=== PATIENT | male | born 1935 | race Hispanic/Latino ===

== ENCOUNTER 2018-02-23 01:38 | Emergency (ER) | payer MEDICARE, OTHER ==
[2018-02-23 02:09] LABS: Hematocrit 41.3 % (35.5-45.6); Mean Corpuscular HGB Conc 34 % (32-34); Mean Corpuscular Hemoglobin 34 pg (28-32); Mean Corpuscular Volume 99 fl (84-94); Platelet Count 169 K/mm3 (140-440); Red Blood Count 4.15 M/mm3 (3.65-5.03); Red Cell Distribution Width 13.5 % (13.2-15.2)
[2018-02-23 02:37] LABS: BUN/Creatinine Ratio 30; Blood Urea Nitrogen 12 mg/dL (9-20); Calcium 8.7 mg/dL (8.4-10.2); Hemolysis Index 9
--- NOTE | 2018-02-23 02:51 | Cat Scan Report ---
FINAL REPORT EXAM: CT CERVICAL SPINE WO CON HISTORY: fall humerus fracture TECHNIQUE: Routine axial imaging was obtained of the cervical spine without IV contrast with sagittal and coronal reconstructions. FINDINGS: There is a levoscoliosis with reversal of the usual cervical lordosis. There is severe narrowing of the C5-C6 disc with endplate spurring. There is partial fusion at the C6-C7 level with endplate spurring. There is mild canal stenosis at both levels. The upper cervical discs are normal in height. There is no evidence of fracture. There is varying degrees of facet arthropathy changes bilaterally at most levels. The prevertebral soft tissues appear normal. There is moderate arthritic changes of the C1-C2 articulation. 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 IMPRESSION: Levoscoliosis with bursal of the usual cervical lordosis. Severe disc degeneration with endplate spurring at the C5-C6 and C6 levels with mild canal stenosis at both levels. Extensive facet arthropathy changes bilaterally at multiple levels. No evidence of fracture. 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 Outpatient thyroid sonography is recommended for better evaluation.
--- NOTE | 2018-02-23 03:12 | XRay Report ---
FINAL REPORT EXAM: XR HUMERUS BILAT 2+V HISTORY: fall huymerus fracture TECHNIQUE: Two AP views of the left humerus were submitted. There are no previous studies available for comparison. FINDINGS: There is osteoporosis. There is a chronic fracture deformity through the left humeral neck. An acute fracture line is not definitely seen. The elbow joint is not show any acute changes. The soft tissues are unremarkable. IMPRESSION: Osteoporosis. Chronic fracture deformity of the left humeral neck. No definite acute fracture identified.
[2018-02-23 03:42] LABS: Bilirubin,Urine NEG (Negative); Blood,Urine NEG (Negative); Color,Urine Yellow (Yellow); Mucus,Urine FEW /HPF; Protein,Urine <15 mg/dL mg/dL (Negative); Urobilinogen,Urine < 2.0 mg/dL (<2.0)
--- NOTE | 2018-02-23 04:26 | Emergency Department Report ---
ED General Adult HPI - General Chief complaint: Extremity Injury, Upper Stated complaint: SHOULDER PAIN Time Seen by Provider: 02/23/18 02:48 Source: patient, family, EMS (ems notes not available at time of chart dictation), RN notes reviewed Mode of arrival: Stretcher Limitations: Physical Limitation - History of Present Illness Initial comments: This is an 82-year-old male, unknown to this provider, history of aneurysm, left -sided hemiparesis, chronic known left-sided proximal humerus fracture, sent to the ER from a local assisted for evaluation of left anterior chest wall ecchymosis, uncertain how it got there, and possible acute fracture of left humerus. The patient is nonverbal and cannot describe exacerbating or relieving factors or give any additional history. He is accompanied by his son , who indicates that the patient appears to be at baseline. Patient's son denies fevers, chills, new lethargy, irritability, or change in mental status. Patient has an anterior lateral superior left-sided chest wall ecchymosis, and he does not know how it got there. The assisted does not know how it got there. The assisted with the patient came from obtained inpatient x-rays which showed a proximal left-sided humerus fracture, and he was sent to the ER for further evaluation and management. -: unknown Location: chest, left Quality: other (per hpi) Consistency: other (per hpi) Improves with: other (per hpi) Worsens with: other (per hpi) Associated Symptoms: other (per hpi) - Related Data Home Medications Medication Instructions Recorded Confirmed Last Taken Captopril [Capoten] 50 mg PO TID 12/17/13 12/17/13 Unknown Cimetidine 400 mg PO QHS 12/17/13 12/17/13 Unknown Donepezil [Aricept] 10 mg PO QHS 12/17/13 12/17/13 Unknown Finasteride 1 mg PO DAILY 12/17/13 12/17/13 Unknown Memantine HCl [Namenda Xr] 28 mg PO DAILY 12/17/13 12/17/13 Unknown Metoprolol [Lopressor TAB] 100 mg PO BID 12/17/13 12/17/13 Unknown Tamsulosin [Flomax] 0.4 mg PO DAILY 12/17/13 12/17/13 Unknown Previous Rx's Medication Instructions Recorded Last Taken Type Aspirin [Aspirin TAB] 325 mg PO QDAY #15 tablet 12/23/13 Unknown Rx Enoxaparin [Lovenox] 40 mg SUB-Q QDAY #15 syringe 12/23/13 Unknown Rx Phenytoin (25 mg/ml) [Dilantin] 300 mg PO DAILY #30 oral.liqd 12/23/13 Unknown Rx Simvastatin [Zocor TAB] 20 mg PO QHS #30 tablet 12/23/13 Unknown Rx Allergies Allergy/AdvReac Type Severity Reaction Status Date / Time No Known Allergies Allergy Verified 12/18/13 02:04 ED Review of Systems ROS: Stated complaint: SHOULDER PAIN Other details as noted in HPI Comment: Unobtainable due to pts medical conditions ED Past Medical Hx - Past Medical History Previous Medical History?: Yes Hx Hypertension: Yes Hx CVA: Yes (aphasia) Hx Diabetes: No Hx Seizures: Yes (epilepsy) Hx COPD: Yes Hx Dementia: Yes - Surgical History Past Surgical History?: Yes Hx Appendectomy: Yes - Social History Smoking Status: Never Smoker - Medications Home Medications: Home Medications Medication Instructions Recorded Confirmed Last Taken Type Captopril [Capoten] 50 mg PO TID 12/17/13 12/17/13 Unknown History Cimetidine 400 mg PO QHS 12/17/13 12/17/13 Unknown History Donepezil [Aricept] 10 mg PO QHS 12/17/13 12/17/13 Unknown History Finasteride 1 mg PO DAILY 12/17/13 12/17/13 Unknown History Memantine HCl [Namenda Xr] 28 mg PO DAILY 12/17/13 12/17/13 Unknown History Metoprolol [Lopressor TAB] 100 mg PO BID 12/17/13 12/17/13 Unknown History Tamsulosin [Flomax] 0.4 mg PO DAILY 12/17/13 12/17/13 Unknown History Aspirin [Aspirin TAB] 325 mg PO QDAY #15 tablet 12/23/13 Unknown Rx Enoxaparin [Lovenox] 40 mg SUB-Q QDAY #15 syringe 12/23/13 Unknown Rx Phenytoin (25 mg/ml) [Dilantin] 300 mg PO DAILY #30 oral.liqd 12/23/13 Unknown Rx Simvastatin [Zocor TAB] 20 mg PO QHS #30 tablet 12/23/13 Unknown Rx ED Physical Exam - General Limitations: Physical Limitation General appearance: alert, in no apparent distress, other (patient is nonverbal. ) - Head Head exam: Present: atraumatic, normocephalic - Eye Eye exam: Present: normal appearance - ENT ENT exam: Present: mucous membranes dry - Neck Neck exam: Present: normal inspection, full ROM. Absent: tenderness, meningismus - Respiratory Respiratory exam: Present: normal lung sounds bilaterally, chest wall tenderness (left lateral anterior chest wall ecchymosis and hematoma. No crepitus. Anterior chest wall compartments soft.). Absent: respiratory distress - Cardiovascular Cardiovascular Exam: Present: regular rate, normal rhythm, normal heart sounds. Absent: bradycardia, tachycardia, irregular rhythm, systolic murmur, diastolic murmur, rubs, gallop - GI/Abdominal GI/Abdominal exam: Present: soft, normal bowel sounds. Absent: distended, tenderness, guarding, rebound, rigid, pulsatile mass - Rectal Rectal exam: Present: deferred - Extremities Exam Extremities exam: Present: normal inspection, normal capillary refill, other (2 + pulses noted in the bilateral upper, lower extremities. Compartments soft. No long bony tenderness. The pelvis is stable.). Absent: calf tenderness - Back Exam Back exam: Present: normal inspection. Absent: full ROM (chronic decreased range of motion in the left arm, appears unchanged from baseline as per son.) - Neurological Exam Neurological exam: Present: alert, motor sensory deficit (left-sided weakness.) , other (patient moving right upper, right lower extremity. Unable to assess cranial nerves, sensation, orientation secondary to patient's lack of ability to cooperate and participate.) - Psychiatric Psychiatric exam: Present: flat affect, other (patient is nonverbal) - Skin Skin exam: Present: warm, ecchymosis ED Course - Reevaluation(s) Reevaluation #1: 02/23/18 05:53 CT scan of the brain shows no acute disease. Chronic findings noted. Patient will be discharged. ED Medical Decision Making - Lab Data Result diagrams: 02/23/18 02:03 02/23/18 02:03 Labs 02/23/18 02/23/18 02/23/18 02:03 02:03 02:50 WBC 11.9 H RBC 4.15 Hgb 14.0 Hct 41.3 MCV 99 H MCH 34 H MCHC 34 RDW 13.5 Plt Count 169 Sodium 137 Potassium 3.8 Chloride 97.0 L Carbon Dioxide 31 H Anion Gap 13 BUN 12 Creatinine 0.4 L Estimated GFR > 60 BUN/Creatinine Ratio 30 Glucose 110 H Calcium 8.7 Total Creatine Kinase 126 Urine Color Yellow Urine Turbidity Clear Urine pH 5.0 Ur Specific [place] 1.021 Urine Protein <15 mg/dl Urine Glucose (UA) Neg Urine Ketones Neg Urine Blood Neg Urine Nitrite Neg Urine Bilirubin Neg Urine Urobilinogen < 2.0 Ur Leukocyte Esterase Neg Urine WBC (Auto) 1.0 Urine RBC (Auto) 1.0 U Epithel Cells (Auto) 1.0 Urine Mucus Few - Radiology Data Radiology results: report reviewed, image reviewed interpreted by me: X-ray the chest is negative for acute disease. Noncontrast CT scan of the cervical spine shows DJD. No acute disease. X-ray of the left humerus demonstrates a chronic fracture deformity of the left humeral neck. No definite acute fracture is identified. - Medical Decision Making Differential diagnosis, including but not limited to: Intracranial injury, cervical spine injury, traumatic chest wall ecchymosis, etiology unknown, chronic left proximal humerus fracture Assessment and plan: 82-year-old male who presents to the ER with left anterior lateral chest wall ecchymosis, of unknown etiology. He does not have an acute fracture noted on x-ray in his left proximal humerus. He is neurologically at his baseline as per family. Noncontrast CT scan interpretation the brain is pending. The left anterior chest wall ecchymosis coming managed expectantly. Critical care attestation.: If time is entered above; I have spent that time in minutes in the direct care of this critically ill patient, excluding procedure time. ED Disposition Clinical Impression: Superficial bruising of chest wall Qualifiers: Encounter type: initial encounter Laterality: left Qualified Code(s): S20.212A - Contusion of left front wall of thorax, initial encounter Fracture, humerus closed Qualifiers: Encounter type: sequela Humerus Location: proximal Disposition: [id number] ANOTHER TYPE HLTHCARE Is pt being admited?: No Does the pt Need Aspirin: No Condition: Good Additional Instructions: Apply warm compresses to the left anterior chest wall. May alternate with ice packs. Patient may receive acetaminophen every 4 hours, alternating with ibuprofen every 6 hours with food for pain. Left arm fracture is chronic and not new. Continue current outpatient medications. Return to the ER right away with fevers, chills, lethargy, irritability, projectile vomiting, change in mental status, confusion, inability to tolerate liquid feeds. Referrals: PRIMARY CARE, [Primary Care Provider] - 3-5 Days
--- NOTE | 2018-02-23 05:51 | Cat Scan Report ---
FINAL REPORT EXAM: CT HEAD/BRAIN W/O CONTRAST HISTORY: fall humerus fracture TECHNIQUE: Routine axial imaging was obtained of the brain without IV contrast. There are no previous studies available for comparison. FINDINGS: There has been a previous right temporal craniotomy. There is a radiopaque lead extending from the craniotomy site with the tip position in the sub insular cortex of the right temporal lobe. There is encephalomalacia in the right temporal lobe. There is moderate generalized atrophy. There is diminished attenuation of the periventricular white matter compatible chronic microvascular disease changes. There is a remote lacunar infarct in the left thalamus. There is no evidence of acute stroke or hemorrhage. There are no extra-axial fluid collections. The visualized sinuses reveal secretions in the right sphenoid sinus. The mastoid air cells are well pneumatized. IMPRESSION: Previous right temporal craniotomy with encephalomalacia in the right temporal lobe. Generalized atrophy with chronic microvascular changes bilaterally. No acute stroke or hemorrhage. Nonspecific lead extending from the right craniotomy site to the sub insular cortex of the right temporal lobe. 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
[2018-02-23 07:59] VITALS: BP 159/72
--- NOTE | 2018-02-24 07:48 | XRay Report ---
AP chest: Trauma. The cardiac contour is normal in size. There is no vascular congestion. The lungs are clear of any nodule or infiltrate. The lungs are well aerated. The trachea is deviated to the right at the thoracic inlet. Compared to prior exam in June 2012 the trachea does not appear deviated but the cardiopulmonary findings are not otherwise significantly different. Impression: Suspect interval enlargement of the left thyroid lobe or other paratracheal mass. No acute cardiopulmonary findings suspected. Mass also noted on concurrent cervical CT scan. Recommendation: Thyroid ultrasound.
== END 2018-02-23 09:01 | disposition other institution (70) ==
LOC: ED 01:38
DX: S20.212A Contusion of left front wall of thorax, initial encounter (principal); S42.212A Unspecified displaced fracture of surgical neck of left humerus, initial encounter for closed fracture; I10 Essential (primary) hypertension; J44.9 Chronic obstructive pulmonary disease, unspecified; F03.90 Unspecified dementia, unspecified severity, without behavioral disturbance, psychotic disturbance, mood disturbance, and anxiety; Z86.73 Personal history of transient ischemic attack (TIA), and cerebral infarction without residual deficits; Z79.82 Long term (current) use of aspirin; X58.XXXA Exposure to other specified factors, initial encounter; Y93.89 Activity, other specified; Y92.89 Other specified places as the place of occurrence of the external cause; Y99.8 Other external cause status
CPT/HCPCS: 36415; 70450; 71045; 72125; 80048; 81001; 82550; 85027; 99285